=== PATIENT | female | born 1955 | race Caucasian/White ===

== ENCOUNTER 2024-07-01 16:39 | Emergency (ER) | payer MEDICARE, OTHER, SELFPAY ==
[2024-07-01 16:47] VITALS: BP 146/87
[2024-07-01 17:15] LABS: % Basophils 0.3 % (0-2); % Eosinophils 0.5 % (0-6); % Immature Granulocytes 0.5 % (0-0.5); % Lymphocytes 8.3 % (20.5-51.1); % Monocytes 6.7 % (1.7-9.3); % Neutrophils 83.7 % (42.2-75.2); Absolute Basophils 0.1 10^3/uL (0-0.2); Absolute Eosinophils 0.1 10^3/uL (0-0.7); Absolute Immature Granulocytes 0.1 10^3/uL (0-0.05); Absolute Lymphocytes 1.3 10^3/uL (1.2-3.4); Absolute Neutrophils 12.8 10^3/uL (1.4-6.5); Hematocrit 39.4 % (37.0-47.0); Hemoglobin 13.3 g/dL (12.0-16.0); Mean Corp Hgb Conc. 33.8 g/dL (33.0-37.0); Mean Corpuscular Volume 94.9 fL (81.0-99.0); Mean Platelet Volume 9.1 fL (7.4-10.4); Nucleated Red Blood Cells % 0 %; Platelet Count 339 10^3/uL (130-400); Red Blood Cell Count 4.15 10^6/uL (4.20-5.40); Red Cell Dist. Width 12.5 % (11.5-14.5); White Blood Cell Count 15.3 10^3/uL (4.8-10.8)
[2024-07-01 18:00] LABS: ALT (SGPT) 22 U/L (0-35); AST (SGOT) 27 U/L (14-36); Albumin 4.2 g/dl (3.5-5.0); Alkaline Phosphatase 80 U/L (38-126); Blood Urea Nitrogen 10 mg/dl (7-17); Carbon Dioxide 30 mmol/L (22-30); Chloride 99 mmol/L (98-107); Glucose 126 mg/dl (70-99); Sodium 141 mmol/L (135-145); Total Protein 7.2 g/dl (6.3-8.2); eGFR > 60.00
[2024-07-01 18:11] LABS: Troponin I < 0.012 ng/ml
[2024-07-01 19:04] VITALS: BP 141/98
[2024-07-01 19:07] VITALS: BMI 27.3
--- NOTE | 2024-07-01 19:23 | ED.GENMED ---
History of Present Illness
General
Chief Complaint: Chest Pain
Source: patient
Time Seen by Provider: 07/01/24 18:46
History of Present Illness
History of Present Illness:
This is 68-year-old female who presents with chest pain that started during this morning. She states that the pain has persisted all day. She states she first felt a little bit in her back and her shoulder but and feels in her chest. Patient
states she recently is gone over being ill and had been put on steroids. She states he was getting a little bit better. Patient did recently have some outpatient labs and chest x-ray. Patient states the pain is better now that it was through the
day. She denies. She does states she feels better would like to go home. Patient does admit that she took Mucinex D this morning and that made her feel like her heart was racing.
Past History
Past History
ED Past Medical History: GERD
ED Past Surgical History: Cholecystectomy
Social History
Tobacco: Non-smoker
Alcohol: Occasional
Drug: None
Personal:
Living: alone
Family History
Family History: Other (Father with esophageal cancer, mother with shingles)
Phy Exam
Physical Exam
Physical Exam:
CONSTITUTIONAL Patient alert and oriented to person, place and time. Well-appearing. Vital signs reviewed.
HEAD atraumatic, normocephalic.
EYES eyelids normal to inspection, Extraocular muscles intact, Conjunctiva normal, Sclera normal.
NECK normal range of motion, Trachea midline, no jugular venous distention.
RESPIRATORY CHEST No respiratory distress noted, Chest expansion equal, Bilateral breath sounds clear.
CARDIOVASCULAR regular rate and rhythm, Heart sounds normal.
ABDOMEN abdomen nontender, Bowel sounds normal. No distention.
BACK normal inspection, no obvious deformities
UPPER EXTREMITY range of motion normal, Motor strength normal, no cyanosis, no edema.
LOWER EXTREMITY range of motion normal, Motor strength normal, no cyanosis, no edema.
NEURO Speech normal, No focal motor deficits, Nancy coma scale 15, Memory normal, Cranial Nerves intact to screening exam.
SKIN skin warm, dry, and normal in color.
Scores
Heart Score for Chest Pain Patients
STEMI patient?: No
History: Slightly or Non-Suspicious
ECG: Normal
Age: >/= 65 years
Risk Factors: 1 or 2 Risk Factors
Troponin: </= Normal Limit
Heart Score for Chest Pain Patients: 3
Heart Score Risk: 2.5% MACE over next 6 weeks
Course
Orders/Labs/Results
Orders:
Orders
07/01/24 16:40
ECG [Electrocardiogram (*1)] Urgent
Reason for Study: Chest Pain
EKG- Treatment ONCE
07/01/24 17:08
Complete Blood Count/With Diff Urgent
Comprehensive Metabolic Panel Urgent
Troponin I Urgent
07/01/24 18:46
CR Chest - 2 Views Urgent
Comment:
Reason For Exam: cp
Abnormal Lab Results
07/01/24
17:08
WBC 15.3 H 10^3/uL
(4.8-10.8)
RBC 4.15 L 10^6/uL
(4.20-5.40)
MCH 32.0 H pg
(27.0-31.0)
Abs Immat Gran (auto) 0.1 H 10^3/uL
(0-0.05)
Absolute Neuts (auto) 12.8 H 10^3/uL
(1.4-6.5)
Absolute Monos (auto) 1.0 H 10^3/uL
(0.1-0.6)
Neutrophils % 83.7 H %
(42.2-75.2)
Lymphocytes % 8.3 L %
(20.5-51.1)
Glucose 126 H mg/dl
(70-99)
07/01/24 17:08
07/01/24 17:08
Vital Signs
Initial and Last Documented VS:
Initial Vital Signs
Temp Pulse Resp BP Pulse Ox
100.0 F 90 16 146/87 98
07/01/24 16:47 07/01/24 16:47 07/01/24 16:47 07/01/24 16:47 07/01/24 16:47
Last Documented Vital Signs
Temp Pulse Resp BP Pulse Ox
100.0 F 76 20 141/98 94
07/01/24 16:47 07/01/24 19:15 07/01/24 19:18 07/01/24 19:04 07/01/24 19:15
MDM/Problems Addressed
MDM/Problems Addressed:
Chest pain, uncontrolled hypertension
*Radiology
Radiology exam reviewed: preliminary read by ED provider (Suspect atelectasis)
*Pulse Oximetry
Patient hypoxic: no
*EKG
Interpreted by ED Provider?: Yes
Interpretation: normal
Rate: normal
Rhythm: sinus
Interval: normal interval
QRS Pattern: normal QRS
Ischemia: no ischemia
*Director Of Academic Support Interpretation
Rate: normal
Interpretation: normal
Rhythm: sinus
*Critical Care Note
Total Time (30-74mins, 75-104mins- exclusive of procedures): Not Applicable
Data Reviewed
Source: patient
Prescriptions/Medications Considered But Not Given:
Consider nitroglycerin but EKG grossly unremarkable. Low suspicion for ACS
Patient Management
Escalation/DeEscalation of care consider admission/obs:
Chest x-ray reviewed by me. Patient reports feeling much better from a recent cough illness. Do not suspect pneumonia as I suspect that it may be related to atelectasis. White count notable was recently on steroids. Recommend close outpatient
PCP follow-up. Patient is eager to get discharged. Cardiology follow-up hotline notified via discharge directions
ED Attending Note
-
Portions of this chart may have been created with voice recognition software.� Occasional wrong word or��sound alike� substitutions may have occurred due to the inherent limitations of voice recognition software.
Discharge Plan
Departure
Patient Disposition: Home (Routine Discharge)
Date of Disposition: 07/01/24
Time of Disposition: 20:12
Patient with high blood pressure during this ER visit?: Yes
Discharge Problem:
Chest pain
Instructions: Chest Pain CBC Follow Up, BLOOD PRESSURE
Prescriptions:
No Action
omeprazole 40 mg Capsule,Delayed Release(Dr/Ec)
40 mg PO DAILY
irbesartan 150 mg Tablet
150 mg PO DAILY
rosuvastatin 10 mg Tablet
10 mg PO DAILY
Referrals:
Nimesh Wilks MD [Family Provider] -
Activity Restrictions/Additional Instructions:
Please avoid strenuous or exertional activity until cleared by cardiology. Please see cardiology in the next 48 hours for reevaluation. Return immediately for worsening pain, shortness breath, palpitations, sweating, nausea, weakness of any kind,
numbness, tingling or any other concerns.
Cardiology has been notified and a follow up appointment has been requested. Someone will call you on the next business day to schedule a follow up appointment.
Interventions
Interventions:
*Risk Screen - Suicide Last Done: 07/01/24 16:49
*General Assessment Last Done: 07/01/24 19:09
*Neglect/Abuse Screening Last Done: 07/01/24 16:49
ED- Fall Risk Assessment Last Done: 07/01/24 19:09
ED- Cardiac Assessment Last Done: 07/01/24 19:18
Discharge Date and Time
Print Language: [place]
== END 2024-07-01 20:26 | disposition home or self-care (01) ==
LOC: EMR 16:39
PROVIDERS: Student in an Organized Health Care Education/Training Program; EMERGENCY PHYSICIAN Emergency Medicine; FAMILY PHYSICIAN Internal Medicine
DX: R07.9 Chest pain, unspecified (principal); I10 Essential (primary) hypertension; K21.9 Gastro-esophageal reflux disease without esophagitis; Z90.49 Acquired absence of other specified parts of digestive tract
CPT/HCPCS: 99285; 71046; 80053; 84484; 85025; 93005